=== PATIENT | female | born 1950 | race Caucasian/White ===

== ENCOUNTER 2021-07-09 17:54 | Inpatient (IN) ==
[2021-07-09] MEDS ORDERED: ONDANSETRON 4 MG/2 ML VIAL IV STA (19:12)
[2021-07-09] MEDS ORDERED: HYDROmorphone 1 MG/1 ML SYRINGE IV STA (19:12)
[2021-07-09] MEDS ORDERED: KETOROLAC 30 MG/1 ML VIAL IV STA (19:12)
[2021-07-09 20:13] LABS: Basophils % 0.2 % (0.0-0.8); Eosinophils # 0.1 10*3/uL (0.0-0.87); Eosinophils % 0.7 % (0.00-10.9); Hematocrit 36.7 VOL% (35.7-47.0); Hemoglobin 11.8 GM/DL (12.0-16.0); Immature Granulocytes Absolute 0.13 #; Lymphocytes % 15.7 % (21.3-54.2); Mean Corpuscular HGB Conc 32.2 GM/DL (32-36); Mean Corpuscular Volume 95.8 FL (87-102); Mean Platelet Volume 11.6 FL (9.6-12.0); Monocytes # 1.1 10*3/uL (0.11-0.8); Neutrophils % 73.4 % (38.7-73.9); Platelet Count 266 T/CUMM (130-400); Red Blood Count 3.83 MC/CUMM (3.8-5.5); Red Cell Distribution Width 15.7 % (9.3-17.3); White Blood Count 12.4 T/CUMM (4-12)
[2021-07-09 20:18] LABS: Albumin 3.4 G/DL (3.4-5.0); Bilirubin,Total 0.5 MG/DL (0.20-1.00); Calcium 9.5 MG/DL (8.5-10.1); INR 0.9; PT Patient Result 10.7 SECS (10.5-12.0); Potassium 3.7 MMOL/L (3.5-5.1); Total Protein 6.8 G/DL (6.4-8.2)
[2021-07-09] MEDS ORDERED: NALOXONE 0.4 MG/ML VIAL IV PRN (21:24)
[2021-07-09] MEDS ORDERED: ONDANSETRON 4 MG/2 ML VIAL IV PRN (21:24)
[2021-07-09] MEDS ORDERED: ACETAMINOPHEN 325 MG TABLET PO PRN (21:24)
[2021-07-09] MEDS: SODIUM CHLORIDE 0.9% 1,000 ML IV SCH (22:56)
[2021-07-09] MEDS: ALBUTEROL/IPRATROPIUM 3 ML NEB RESP TX SCH (23:30)
[2021-07-10] MEDS: HYDROmorphone PCA 30 MG/30 ML SYRINGE IV SCH (00:56)
[2021-07-10] MEDS: ALBUTEROL/IPRATROPIUM 3 ML NEB RESP TX SCH ×5 (06:49→19:29)
[2021-07-10] MEDS ORDERED: PANTOPRAZOLE 40 MG TABLET PO SCH (09:00)
[2021-07-10] MEDS: FLUoxetine 20 MG CAPSULE PO SCH (09:41)
[2021-07-10] MEDS: FERROUS SULFATE 325 MG TABLET PO SCH (09:41)
[2021-07-10] MEDS: BISOPROLOL 5 MG TABLET PO SCH (09:41)
[2021-07-10] MEDS: FUROSEMIDE 20 MG TABLET PO SCH ×2 (09:41→15:39)
[2021-07-10] MEDS: amLODIPine 5 MG TABLET PO SCH (09:41)
[2021-07-10] MEDS: ASPIRIN EC 81 MG TABLET PO SCH (09:41)
[2021-07-10] MEDS: DULoxetine 30 MG CAPSULE PO SCH (09:41)
[2021-07-10] MEDS: ATORVASTATIN 10 MG TABLET PO SCH (09:41)
[2021-07-10] MEDS: MEMANTINE 10 MG TABLET PO SCH ×2 (09:42→20:35)
[2021-07-10] MEDS: GABAPENTIN 300 MG CAPSULE PO SCH (09:42)
[2021-07-10] MEDS: PANTOPRAZOLE 40 MG TABLET PO SCH ×2 (10:04→20:35)
[2021-07-10] MEDS ORDERED: TRIAMCINOLONE ACETONIDE 40 MG/1 ML VIAL MISC INJ ONE (10:24)
[2021-07-10] MEDS ORDERED: ROPIVACAINE 0.5% 30 ML VIAL NERVEBLOCK ONE (10:24)
[2021-07-10] MEDS: SODIUM CHLORIDE 0.9% 1,000 ML IV SCH (12:30)
[2021-07-10] MEDS: TOPIRAMATE 25 MG TABLET PO SCH (20:34)
[2021-07-11] MEDS: ALBUTEROL/IPRATROPIUM 3 ML NEB RESP TX SCH ×6 (00:30→18:59)
[2021-07-11] MEDS: SODIUM CHLORIDE 0.9% 1,000 ML IV SCH ×2 (01:21→17:01)
[2021-07-11] MEDS: HYDROmorphone PCA 30 MG/30 ML SYRINGE IV SCH (07:19)
[2021-07-11] MEDS: BISOPROLOL 5 MG TABLET PO SCH (10:14)
[2021-07-11] MEDS: DULoxetine 30 MG CAPSULE PO SCH ×2 (10:15→10:20)
[2021-07-11] MEDS: FERROUS SULFATE 325 MG TABLET PO SCH (10:16)
[2021-07-11] MEDS: MEMANTINE 10 MG TABLET PO SCH ×2 (10:18→21:15)
[2021-07-11] MEDS: FUROSEMIDE 20 MG TABLET PO SCH ×2 (10:19→17:04)
[2021-07-11] MEDS: amLODIPine 5 MG TABLET PO SCH (10:19)
[2021-07-11] MEDS: PANTOPRAZOLE 40 MG TABLET PO SCH ×2 (10:19→21:15)
[2021-07-11] MEDS: GABAPENTIN 300 MG CAPSULE PO SCH (10:19)
[2021-07-11] MEDS: ASPIRIN EC 81 MG TABLET PO SCH (10:19)
[2021-07-11] MEDS: FLUoxetine 20 MG CAPSULE PO SCH (10:19)
[2021-07-11] MEDS: ATORVASTATIN 10 MG TABLET PO SCH (10:19)
[2021-07-11] MEDS ORDERED: HYDROmorphone 1 MG/1 ML SYRINGE IV PRN (11:29)
[2021-07-11] MEDS: fentaNYL 25 MCG/HR PATCH TRANSDERM SCH (16:56)
[2021-07-11] MEDS: LIDOCAINE 5% PATCH TRANSDERM SCH (17:00)
[2021-07-11] MEDS: KETOROLAC 30 MG/1 ML VIAL IV SCH ×2 (17:02→23:58)
[2021-07-11] MEDS: ONDANSETRON 4 MG/2 ML VIAL IV PRN (17:11)
[2021-07-11] MEDS ORDERED: ROPIVACAINE 0.5% 30 ML VIAL MISC INJ ONE (17:30)
[2021-07-11] MEDS ORDERED: TRIAMCINOLONE ACETONIDE 40 MG/1 ML VIAL MISC INJ ONE (17:30)
[2021-07-11 17:45] LABS: Mucus,Urine Occasional /LPF (Occasional); RBC,Urine 3 /HPF (0-4); Squamous Epithelial Cell,Urine Occasional /HPF (0-10); Urine Appearance Clear (Clear); Urine Color Yellow (Yellow); Urine pH 5.5 (4.5-8.0)
[2021-07-11 17:46] LABS: Bilirubin,Urine Negative (Negative); Blood, Urine Trace mg/dL (Negative); Glucose,Urine (UA) Negative (Negative); Ketones,Urine Negative (Negative); Nitrite,Urine Negative (Negative); Protein,Urine Negative (Negative); Urine Urobilinogen 0.2 eU/dL (<2.0)
[2021-07-11 20:56] LABS: ABG Base Excess -1.6 MMOL/L (-2.5-2.5); ABG Oxygen Saturation 95.7 % (95-100); ABG PCO2 47.9 MM HG (35-48); ABG PH 7.322 (7.35-7.45); ABG PO2 79.2 MM HG (80-95); ABG TCO2 22.6 MMOL/L (23-27); Allen Test Positive
[2021-07-11] MEDS: TOPIRAMATE 25 MG TABLET PO SCH (21:14)
[2021-07-11] MEDS: BISACODYL 5 MG TABLET PO SCH (21:14)
[2021-07-11] MEDS: POLYETHYLENE GLYCOL POWDER 17 GM PACK PO SCH (21:15)
[2021-07-12] MEDS: ALBUTEROL/IPRATROPIUM 3 ML NEB RESP TX SCH ×7 (00:14→23:25)
[2021-07-12] MEDS: SODIUM CHLORIDE 0.9% 1,000 ML IV SCH (05:11)
[2021-07-12] MEDS: KETOROLAC 30 MG/1 ML VIAL IV SCH ×2 (05:12→11:10)
[2021-07-12] MEDS: MEMANTINE 10 MG TABLET PO SCH ×2 (08:44→20:57)
[2021-07-12] MEDS: ASPIRIN EC 81 MG TABLET PO SCH (08:44)
[2021-07-12] MEDS: FERROUS SULFATE 325 MG TABLET PO SCH (08:44)
[2021-07-12] MEDS: FUROSEMIDE 20 MG TABLET PO SCH ×2 (08:44→17:13)
[2021-07-12] MEDS: DULoxetine 30 MG CAPSULE PO SCH (08:44)
[2021-07-12] MEDS: ATORVASTATIN 10 MG TABLET PO SCH (08:45)
[2021-07-12] MEDS: PANTOPRAZOLE 40 MG TABLET PO SCH ×2 (08:45→21:01)
[2021-07-12] MEDS: GABAPENTIN 300 MG CAPSULE PO SCH (08:45)
[2021-07-12] MEDS: amLODIPine 5 MG TABLET PO SCH (08:45)
[2021-07-12] MEDS: FLUoxetine 20 MG CAPSULE PO SCH (08:45)
[2021-07-12 09:02] LABS: Basophils % 0.1 % (0.0-0.8); Eosinophils % 0.1 % (0.00-10.9); Hematocrit 33.4 VOL% (35.7-47.0); Hemoglobin 10.4 GM/DL (12.0-16.0); Immature Granulocytes % 0.6 %; Immature Granulocytes Absolute 0.06 #; Lymphocytes # 0.8 10*3/uL (1.4-4.0); Lymphocytes % 7.9 % (21.3-54.2); Mean Corpuscular HGB Conc 31.1 GM/DL (32-36); Mean Corpuscular Volume 98.8 FL (87-102); Mean Platelet Volume 10.8 FL (9.6-12.0); Monocytes # 0.6 10*3/uL (0.11-0.8); Neutrophils % 85.3 % (38.7-73.9); Platelet Count 211 T/CUMM (130-400); Red Blood Count 3.38 MC/CUMM (3.8-5.5); White Blood Count 9.5 T/CUMM (4-12)
[2021-07-12] MEDS: BISOPROLOL 5 MG TABLET PO SCH (09:06)
[2021-07-12] MEDS: LIDOCAINE 5% PATCH TRANSDERM SCH (09:09)
[2021-07-12 09:20] LABS: Calcium 9.4 MG/DL (8.5-10.1); Osmolality,Calculated 280.7 MOS/KG (273-304); Potassium 3.7 MMOL/L (3.5-5.1)
[2021-07-12] MEDS: BISACODYL 5 MG TABLET PO SCH ×2 (09:27→20:57)
[2021-07-12] MEDS: POLYETHYLENE GLYCOL POWDER 17 GM PACK PO SCH ×2 (09:27→21:01)
[2021-07-12] MEDS: MENTHOL/ZINC OXIDE OINT 71 GM JAR TOP SCH (12:54)
[2021-07-12] MEDS: TOPIRAMATE 25 MG TABLET PO SCH (20:57)
[2021-07-13] MEDS: ONDANSETRON 4 MG/2 ML VIAL IV PRN (00:19)
[2021-07-13] MEDS: HYDROmorphone 1 MG/1 ML SYRINGE IV PRN ×3 (00:20→20:07)
[2021-07-13] MEDS: MENTHOL/ZINC OXIDE OINT 71 GM JAR TOP SCH ×3 (00:27→21:08)
[2021-07-13] MEDS: ALBUTEROL/IPRATROPIUM 3 ML NEB RESP TX SCH ×6 (02:05→19:40)
[2021-07-13 05:33] LABS: Calcium 8.8 MG/DL (8.5-10.1); Osmolality,Calculated 285.3 MOS/KG (273-304); Potassium 3.6 MMOL/L (3.5-5.1)
[2021-07-13] MEDS: FUROSEMIDE 20 MG TABLET PO SCH ×2 (09:45→17:11)
[2021-07-13] MEDS: DULoxetine 30 MG CAPSULE PO SCH (09:45)
[2021-07-13] MEDS: ASPIRIN EC 81 MG TABLET PO SCH (09:45)
[2021-07-13] MEDS: FERROUS SULFATE 325 MG TABLET PO SCH (09:46)
[2021-07-13] MEDS: BISACODYL 5 MG TABLET PO SCH ×2 (09:46→20:03)
[2021-07-13] MEDS: LIDOCAINE 5% PATCH TRANSDERM SCH (09:46)
[2021-07-13] MEDS: GABAPENTIN 300 MG CAPSULE PO SCH ×2 (09:47→20:08)
[2021-07-13] MEDS: ATORVASTATIN 10 MG TABLET PO SCH (09:47)
[2021-07-13] MEDS: amLODIPine 5 MG TABLET PO SCH (09:47)
[2021-07-13] MEDS: POLYETHYLENE GLYCOL POWDER 17 GM PACK PO SCH ×2 (09:47→21:08)
[2021-07-13] MEDS: PANTOPRAZOLE 40 MG TABLET PO SCH ×2 (09:47→20:03)
[2021-07-13] MEDS: MEMANTINE 10 MG TABLET PO SCH ×2 (09:47→20:03)
[2021-07-13] MEDS: FLUoxetine 20 MG CAPSULE PO SCH (09:48)
[2021-07-13] MEDS: BISOPROLOL 5 MG TABLET PO SCH (09:48)
[2021-07-13] MEDS: TOPIRAMATE 25 MG TABLET PO SCH (20:03)
[2021-07-13] MEDS: CALCIUM (CARBONATE)/VITAMIN D 600 MG-400 UNIT TABLET PO SCH (20:09)
[2021-07-14] MEDS: HYDROmorphone 1 MG/1 ML SYRINGE IV PRN ×2 (01:29→15:34)
[2021-07-14] MEDS ORDERED: hydrALAZINE 20 MG/1 ML VIAL IV PRN (02:31)
[2021-07-14] MEDS: ALBUTEROL/IPRATROPIUM 3 ML NEB RESP TX SCH ×6 (03:15→23:30)
[2021-07-14 06:00] LABS: Calcium 9.9 MG/DL (8.5-10.1); Osmolality,Calculated 277.7 MOS/KG (273-304); Potassium 3.8 MMOL/L (3.5-5.1)
[2021-07-14] MEDS: FUROSEMIDE 20 MG TABLET PO SCH ×2 (09:38→17:32)
[2021-07-14] MEDS: DULoxetine 30 MG CAPSULE PO SCH (09:39)
[2021-07-14] MEDS: MENTHOL/ZINC OXIDE OINT 71 GM JAR TOP SCH ×2 (09:39→21:57)
[2021-07-14] MEDS: CALCIUM (CARBONATE)/VITAMIN D 600 MG-400 UNIT TABLET PO SCH ×2 (09:39→21:56)
[2021-07-14] MEDS: ASPIRIN EC 81 MG TABLET PO SCH (09:39)
[2021-07-14] MEDS: FERROUS SULFATE 325 MG TABLET PO SCH (09:40)
[2021-07-14] MEDS: BISACODYL 5 MG TABLET PO SCH ×2 (09:40→21:56)
[2021-07-14] MEDS: LIDOCAINE 5% PATCH TRANSDERM SCH (09:41)
[2021-07-14] MEDS: POLYETHYLENE GLYCOL POWDER 17 GM PACK PO SCH ×2 (09:41→21:58)
[2021-07-14] MEDS: ATORVASTATIN 10 MG TABLET PO SCH (09:41)
[2021-07-14] MEDS: MEMANTINE 10 MG TABLET PO SCH ×2 (09:41→21:56)
[2021-07-14] MEDS: GABAPENTIN 300 MG CAPSULE PO SCH ×2 (09:42→21:56)
[2021-07-14] MEDS: amLODIPine 10 MG TABLET PO SCH (09:42)
[2021-07-14] MEDS: PANTOPRAZOLE 40 MG TABLET PO SCH ×2 (09:43→21:56)
[2021-07-14] MEDS: BISOPROLOL 5 MG TABLET PO SCH (09:43)
[2021-07-14] MEDS: FLUoxetine 20 MG CAPSULE PO SCH (09:45)
[2021-07-14] MEDS: fentaNYL 25 MCG/HR PATCH TRANSDERM SCH (09:50)
[2021-07-14] MEDS: TOPIRAMATE 25 MG TABLET PO SCH (21:57)
[2021-07-15] MEDS: ALBUTEROL/IPRATROPIUM 3 ML NEB RESP TX SCH ×6 (07:35→23:00)
[2021-07-15] MEDS: HYDROmorphone 1 MG/1 ML SYRINGE IV PRN (08:05)
[2021-07-15] MEDS: FERROUS SULFATE 325 MG TABLET PO SCH (11:10)
[2021-07-15] MEDS: FUROSEMIDE 20 MG TABLET PO SCH ×2 (11:10→16:25)
[2021-07-15] MEDS: PANTOPRAZOLE 40 MG TABLET PO SCH ×2 (11:11→21:57)
[2021-07-15] MEDS: BISOPROLOL 5 MG TABLET PO SCH (11:11)
[2021-07-15] MEDS: DULoxetine 30 MG CAPSULE PO SCH (11:11)
[2021-07-15] MEDS: MEMANTINE 10 MG TABLET PO SCH ×2 (11:12→21:57)
[2021-07-15] MEDS: BISACODYL 5 MG TABLET PO SCH ×2 (11:12→21:58)
[2021-07-15] MEDS: ASPIRIN EC 81 MG TABLET PO SCH (11:12)
[2021-07-15] MEDS: GABAPENTIN 300 MG CAPSULE PO SCH ×2 (11:13→21:58)
[2021-07-15] MEDS: CALCIUM (CARBONATE)/VITAMIN D 600 MG-400 UNIT TABLET PO SCH ×2 (11:13→21:57)
[2021-07-15] MEDS: FLUoxetine 20 MG CAPSULE PO SCH (11:13)
[2021-07-15] MEDS: amLODIPine 10 MG TABLET PO SCH (11:13)
[2021-07-15] MEDS: ATORVASTATIN 10 MG TABLET PO SCH (11:13)
[2021-07-15] MEDS: POLYETHYLENE GLYCOL POWDER 17 GM PACK PO SCH ×2 (11:14→22:04)
[2021-07-15] MEDS: LIDOCAINE 5% PATCH TRANSDERM SCH (11:16)
[2021-07-15] MEDS: MENTHOL/ZINC OXIDE OINT 71 GM JAR TOP SCH ×2 (11:24→21:57)
[2021-07-15] MEDS: TOPIRAMATE 25 MG TABLET PO SCH (21:58)
[2021-07-16] MEDS: HYDROmorphone 1 MG/1 ML SYRINGE IV PRN ×3 (00:42→22:06)
[2021-07-16] MEDS: ALBUTEROL/IPRATROPIUM 3 ML NEB RESP TX SCH ×6 (02:25→23:20)
[2021-07-16] MEDS: FERROUS SULFATE 325 MG TABLET PO SCH (09:08)
[2021-07-16] MEDS: BISOPROLOL 5 MG TABLET PO SCH (09:08)
[2021-07-16] MEDS: ASPIRIN EC 81 MG TABLET PO SCH (09:08)
[2021-07-16] MEDS: GABAPENTIN 300 MG CAPSULE PO SCH ×2 (09:09→22:06)
[2021-07-16] MEDS: amLODIPine 10 MG TABLET PO SCH (09:09)
[2021-07-16] MEDS: BISACODYL 5 MG TABLET PO SCH ×2 (09:09→22:07)
[2021-07-16] MEDS: MEMANTINE 10 MG TABLET PO SCH ×2 (09:10→22:07)
[2021-07-16] MEDS: FLUoxetine 20 MG CAPSULE PO SCH (09:10)
[2021-07-16] MEDS: ATORVASTATIN 10 MG TABLET PO SCH (09:10)
[2021-07-16] MEDS: DULoxetine 30 MG CAPSULE PO SCH (09:10)
[2021-07-16] MEDS: PANTOPRAZOLE 40 MG TABLET PO SCH ×2 (09:11→22:07)
[2021-07-16] MEDS: CALCIUM (CARBONATE)/VITAMIN D 600 MG-400 UNIT TABLET PO SCH ×2 (09:11→22:07)
[2021-07-16] MEDS: POLYETHYLENE GLYCOL POWDER 17 GM PACK PO SCH (09:13)
[2021-07-16] MEDS: LIDOCAINE 5% PATCH TRANSDERM SCH (09:13)
[2021-07-16] MEDS: FUROSEMIDE 20 MG TABLET PO SCH ×2 (09:14→17:01)
[2021-07-16] MEDS: MENTHOL/ZINC OXIDE OINT 71 GM JAR TOP SCH ×2 (09:15→22:06)
[2021-07-16] MEDS ORDERED: ROPIVACAINE 0.5% 30 ML VIAL NERVEBLOCK ONE (10:37)
[2021-07-16] MEDS ORDERED: TRIAMCINOLONE ACETONIDE 40 MG/1 ML VIAL MISC INJ ONE (10:42)
[2021-07-16] MEDS ORDERED: oxyCODONE IR 5 MG TABLET PO PRN (14:51)
[2021-07-16] MEDS: TOPIRAMATE 25 MG TABLET PO SCH (22:15)
[2021-07-17] MEDS: ALBUTEROL/IPRATROPIUM 3 ML NEB RESP TX SCH ×4 (03:22→14:15)
[2021-07-17] MEDS: POLYETHYLENE GLYCOL POWDER 17 GM PACK PO SCH ×2 (07:27→13:19)
[2021-07-17] MEDS: BISOPROLOL 5 MG TABLET PO SCH (09:25)
[2021-07-17] MEDS: PANTOPRAZOLE 40 MG TABLET PO SCH (09:25)
[2021-07-17] MEDS: CALCIUM (CARBONATE)/VITAMIN D 600 MG-400 UNIT TABLET PO SCH (09:25)
[2021-07-17] MEDS: MEMANTINE 10 MG TABLET PO SCH (09:25)
[2021-07-17] MEDS: FERROUS SULFATE 325 MG TABLET PO SCH (09:25)
[2021-07-17] MEDS: ASPIRIN EC 81 MG TABLET PO SCH (09:25)
[2021-07-17] MEDS: FLUoxetine 20 MG CAPSULE PO SCH (09:26)
[2021-07-17] MEDS: BISACODYL 5 MG TABLET PO SCH (09:26)
[2021-07-17] MEDS: GABAPENTIN 300 MG CAPSULE PO SCH (09:26)
[2021-07-17] MEDS: FUROSEMIDE 20 MG TABLET PO SCH (09:26)
[2021-07-17] MEDS: DULoxetine 30 MG CAPSULE PO SCH (09:26)
[2021-07-17] MEDS: ATORVASTATIN 10 MG TABLET PO SCH (09:26)
[2021-07-17] MEDS: amLODIPine 10 MG TABLET PO SCH (09:26)
[2021-07-17] MEDS: LIDOCAINE 5% PATCH TRANSDERM SCH (09:27)
[2021-07-17] MEDS: HYDROmorphone 1 MG/1 ML SYRINGE IV PRN ×2 (09:31→13:40)
[2021-07-17] MEDS: fentaNYL 25 MCG/HR PATCH TRANSDERM SCH (09:31)
[2021-07-17] MEDS: MENTHOL/ZINC OXIDE OINT 71 GM JAR TOP SCH (13:19)
[2021-07-17 15:34] VITALS: BP 146/82
== END 2021-07-17 16:34 | disposition home or self-care (01) | DRG 184 ==
LOC: N.ED 17:54 → N.EDINP 17:54 → N.3E 22:38 → N.ICU 07-11 15:58 → N.5E 07-12 16:44
PROVIDERS: ADMIT Student in an Organized Health Care Education/Training Program; ATTEND Student in an Organized Health Care Education/Training Program